=== PATIENT | male | born 1960 | race Caucasian/White ===

== ENCOUNTER 2020-09-06 16:35 | Inpatient (IN) | payer OTHER ==
[~2020-09-06 16:35] MED LIST: Iopamidol-370 76% 500 ML 1 ML ONE
[2020-09-06] MEDS ORDERED: Fentanyl 100 MCG/2 ML VIAL ONE ×2 (16:48→19:01)
[2020-09-06 17:01] LABS: #Basophils 0.1 thou/uL (0.0-0.2); #Eosinphils 0.1 thou/uL (0.0-0.7); #Lymphocytes 1.4 thou/uL (1.20-3.40); #Monocytes 0.6 thou/uL (0.11-0.59); #Neutrophils 9.7 thou/uL (1.40-6.50); %Basophils 0.5 % (0.0-1.0); %Eosinophils 0.6 % (0.0-10.0); %Lymphocytes 11.9 % (21.0-51.0); %Monocytes 5.3 % (0.0-10.0); %Neutrophils 81.8 % (42.0-75.0); Hemoglobin 12.9 g/dL (14.0-18.0); Mean Corpuscular HGB CONC 34.2 g/dL (32.0-36.0); Mean Corpuscular Hemoglobin 31.2 pg (27.0-31.0); Mean Corpuscular Volume 91.1 fL (78.0-98.0); Mean Platelet Volume 7.8 fL (7.4-10.4); Platelet Count 189 thou/uL (130-400); RBC Distribution Width 11.3 % (11.5-14.5); Red Blood Cell (RBC) Count 4.15 mill/uL (4.70-6.10); White Blood Cell (WBC) Count 11.8 thou/uL (4.8-10.8)
[2020-09-06 17:25] LABS: ALT (SGPT) 34 U/L (8-55); AST (SGOT) 34 U/L (5-34); Albumin 3.7 g/dL (3.4-4.8); Alkaline Phosphatase 80 U/L (40-110); Anion Gap 10 mmol/L (10-20); BUN (Urea Nitrogen) 18 mg/dL (8.4-25.7); Bilirubin, Total 0.4 mg/dL (0.2-1.2); Calc. Creatinine Clearance 0 mL/min (70-130); Calcium 8.6 mg/dL (7.8-10.44); Carbon Dioxide 23 mmol/L (23-31); Chloride 112 mmol/L (98-107); Globulin 2.4 g/dL (2.4-3.5); Glucose 134 mg/dL (80-115); Potassium 4.2 mmol/L (3.5-5.1); Protein, Total 6.1 g/dL (5.8-8.1); Sodium 141 mmol/L (136-145)
[2020-09-06 17:54] LABS: INR-International Normal Ratio 1.1; PTT 26.2 sec (22.9-36.1); Prothrombin Time 14.7 sec (12.0-14.7)
[2020-09-06] MEDS ORDERED: Ondansetron ODT 4 MG TAB PO PRN (18:56)
[2020-09-06] MEDS ORDERED: Dextrose 5% in Water 1,000 ML IV PRN (18:56)
[2020-09-06] MEDS ORDERED: Dextrose 50% Abboject 50 ML SYRINGE SLOW IVP PRN (18:56)
[2020-09-06] MEDS ORDERED: hydrALAZINE 20 MG/ML VIAL SLOW IVP PRN (18:56)
[2020-09-06] MEDS ORDERED: Morphine 4 MG/ML VIAL SLOW IVP PRN (18:56)
[2020-09-06] MEDS ORDERED: Promethazine HCl 25 MG/ML VIAL IM PRN (18:56)
[2020-09-06] MEDS ORDERED: Ondansetron PF 4 MG/2 ML Vial IVP PRN (18:56)
[2020-09-06] MEDS ORDERED: Sodium Chloride 0.9% 1,000 ML IV SCH (19:00)
[2020-09-06] MEDS ORDERED: CEFAZOLIN 2 GM in Premix Bag 1 BAG IVPB SCH (19:00)
[2020-09-06] MEDS ORDERED: traMADol HCl 50 MG TAB PO PRN (19:02)
[2020-09-06] MEDS ORDERED: Cyclobenzaprine 10 MG TAB PO PRN (19:02)
[2020-09-06 19:04] LABS: SARS-CoV-2 NAA Rapid Test Not Detected (NotDetected)
[2020-09-06 19:17] LABS: Bilirubin Negative (Negative); Blood, Urine Negative (Negative); Clarity Clear (Clear); Glucose, Urine (Dipstick) Normal (Negative); Ketone, Urine Negative (Negative); Leukocyte Negative Leu/uL (Negative); Nitrite Negative (Negative); Protein, Urine (Dipstick) Negative (Neg-Trace); Specific Gravity, Urine 1.018 (1.002-1.036); Urobilinogen Normal mg/dL (Less than 2)
[2020-09-06] MEDS: Lactated Ringer's 1,000 ML IV SCH (21:25)
[2020-09-06] MEDS: Famotidine 20 MG TAB PO SCH (21:25)
[2020-09-06] MEDS: Senokot S 8.6-50 MG TAB PO SCH (21:25)
[2020-09-06 22:54] VITALS: BMI 29.1
[2020-09-07] MEDS: Acetaminophen 500 MG TAB PO SCH ×4 (00:32→17:07)
[2020-09-07] MEDS: traMADol HCl 50 MG TAB PO SCH ×4 (00:33→17:07)
[2020-09-07] MEDS: Ketorolac Tromethamine 30 MG/ML VIAL IVP SCH ×4 (00:33→17:08)
[2020-09-07 03:27] LABS: SARS-CoV-2 NAA Rapid Test Not Detected (NotDetected)
[2020-09-07 05:22] LABS: #Eosinphils 0.1 thou/uL (0.0-0.7); #Lymphocytes 1.2 thou/uL (1.20-3.40); #Monocytes 0.7 thou/uL (0.11-0.59); #Neutrophils 4.6 thou/uL (1.40-6.50); %Basophils 0.5 % (0.0-1.0); %Eosinophils 0.9 % (0.0-10.0); %Lymphocytes 18.3 % (21.0-51.0); %Monocytes 10.4 % (0.0-10.0); %Neutrophils 69.9 % (42.0-75.0); Hemoglobin 11.6 g/dL (14.0-18.0); Mean Corpuscular Volume 90.9 fL (78.0-98.0); Platelet Count 169 thou/uL (130-400); RBC Distribution Width 11.3 % (11.5-14.5); Red Blood Cell (RBC) Count 3.86 mill/uL (4.70-6.10); White Blood Cell (WBC) Count 6.5 thou/uL (4.8-10.8)
[2020-09-07 05:40] LABS: Phosphorus 3.2 mg/dL (2.3-4.7)
[2020-09-07 05:41] LABS: Anion Gap 11 mmol/L (10-20); BUN (Urea Nitrogen) 15 mg/dL (8.4-25.7); Calc. Creatinine Clearance 126 mL/min (70-130); Calcium 8.1 mg/dL (7.8-10.44); Carbon Dioxide 24 mmol/L (23-31); Chloride 109 mmol/L (98-107); Glucose 107 mg/dL (80-115); Magnesium 1.9 mg/dL (1.6-2.6); Potassium 3.9 mmol/L (3.5-5.1); Sodium 140 mmol/L (136-145)
[2020-09-07] MEDS: Lactated Ringer's 1,000 ML IV SCH ×3 (05:51→20:37)
[2020-09-07] MEDS: Losartan 25 MG TAB PO SCH (08:08)
[2020-09-07] MEDS: Famotidine 20 MG TAB PO SCH ×2 (08:08→20:36)
[2020-09-07] MEDS: Polyethylene Glycol 3350 17 GM Packet PO SCH (08:10)
[2020-09-07] MEDS: Senokot S 8.6-50 MG TAB PO SCH ×2 (08:10→20:36)
[2020-09-07] MEDS ORDERED: Midazolam HCl 2 mg/2 ml Vial ONE (10:30)
[2020-09-07] MEDS ORDERED: Fentanyl 100 MCG/2 ML VIAL ONE ×3 (10:31→14:36)
[2020-09-07] MEDS ORDERED: ePHEDrine Sulfate 50 MG/10 ML VIAL ONE (12:12)
[2020-09-07] MEDS ORDERED: Ketorolac Tromethamine 30 MG/ML VIAL ONE (12:12)
[2020-09-07] MEDS ORDERED: Dexamethasone 20 MG/5 ML VIAL ONE (12:12)
[2020-09-07] MEDS ORDERED: Ondansetron PF 4 MG/2 ML Vial ONE (12:12)
[2020-09-07] MEDS ORDERED: Ondansetron HCl/PF 4 MG/2 ML Vial IVP PRN (14:32)
[2020-09-07] MEDS ORDERED: Promethazine HCl 25 MG/ML VIAL SLOW IVP PRN (14:32)
[2020-09-07] MEDS ORDERED: Promethazine HCl 25 MG/ML VIAL IM PRN (14:32)
[2020-09-07] MEDS ORDERED: Morphine Sulfate 2 MG/ML SYRINGE SLOW IVP PRN (14:32)
[2020-09-07] MEDS: CEFAZOLIN 2 GM in Premix Bag 1 BAG IVPB SCH (17:05)
[2020-09-08] MEDS: CEFAZOLIN 2 GM in Premix Bag 1 BAG IVPB SCH ×2 (00:37→09:19)
[2020-09-08] MEDS: traMADol HCl 50 MG TAB PO SCH ×5 (00:38→23:54)
[2020-09-08] MEDS: Acetaminophen 500 MG TAB PO SCH ×5 (00:38→23:54)
[2020-09-08] MEDS: Ketorolac Tromethamine 30 MG/ML VIAL IVP SCH (00:39)
[2020-09-08 05:53] LABS: Mean Corpuscular HGB CONC 34.3 g/dL (32.0-36.0); Mean Corpuscular Hemoglobin 31.4 pg (27.0-31.0); Mean Corpuscular Volume 91.5 fL (78.0-98.0); Mean Platelet Volume 8.3 fL (7.4-10.4); Platelet Count 159 thou/uL (130-400); RBC Distribution Width 11.1 % (11.5-14.5); Red Blood Cell (RBC) Count 3.49 mill/uL (4.70-6.10); White Blood Cell (WBC) Count 9.8 thou/uL (4.8-10.8)
[2020-09-08] MEDS: Lactated Ringer's 1,000 ML IV SCH (06:03)
[2020-09-08] MEDS: Senokot S 8.6-50 MG TAB PO SCH ×2 (09:18→20:36)
[2020-09-08] MEDS: Polyethylene Glycol 3350 17 GM Packet PO SCH (09:19)
[2020-09-08] MEDS: Losartan 25 MG TAB PO SCH (09:19)
[2020-09-08] MEDS: Enoxaparin Sodium 40 MG/0.4 ML SYRINGE SC SCH (09:19)
[2020-09-08] MEDS: Famotidine 20 MG TAB PO SCH ×2 (09:19→20:35)
[2020-09-09] MEDS: Acetaminophen 500 MG TAB PO SCH ×2 (06:04→13:14)
[2020-09-09] MEDS: traMADol HCl 50 MG TAB PO SCH ×2 (06:05→13:14)
[2020-09-09] MEDS ORDERED: Aspirin 81 mg Enteric Coated Tablet PO SCH (09:00)
[2020-09-09] MEDS: Losartan 25 MG TAB PO SCH (10:11)
[2020-09-09] MEDS: Senokot S 8.6-50 MG TAB PO SCH (10:12)
[2020-09-09] MEDS: Famotidine 20 MG TAB PO SCH (10:12)
[2020-09-09] MEDS: Polyethylene Glycol 3350 17 GM Packet PO SCH (10:13)
[2020-09-09] MEDS: Enoxaparin Sodium 40 MG/0.4 ML SYRINGE SC SCH (10:13)
[2020-09-09] MEDS ORDERED: Acetaminophen 500 MG TAB ONE (13:13)
[2020-09-09] MEDS ORDERED: traMADol HCl 50 MG TAB ONE (13:14)
[2020-09-09 15:55] VITALS: BP 131/78; TEMP 98.7
== END 2020-09-09 16:05 | disposition home health service (06) | DRG 493 ==
LOC: ERS 16:35 → SJJU 18:45
PROVIDERS: ADMIT Surgery; ATTEND Surgery
PROC: 0QSH04Z Reposition Left Tibia with Internal Fixation Device, Open Approach (ICD-10-PCS; principal; 2020-09-07)
DX: S82.142A Displaced bicondylar fracture of left tibia, initial encounter for closed fracture (principal); S06.0X9A Concussion with loss of consciousness of unspecified duration, initial encounter; I10 Essential (primary) hypertension; E78.00 Pure hypercholesterolemia, unspecified; Z20.822 Contact with and (suspected) exposure to COVID-19; V29.9XXA Motorcycle rider (driver) (passenger) injured in unspecified traffic accident, initial encounter; Z87.891 Personal history of nicotine dependence; Z91.012 Allergy to eggs; Z79.899 Other long term (current) drug therapy
CPT/HCPCS: 0240U; 29505; 36415; 36416; 70450; 71260; 72125; 74177; 76000; 80048; 80053; 81003; 83735; 84100; 85025; 85027; 85610; 85730; 86850; 86900; 86901; 87635; 93005; 96374; 96376; C1713; J0690; J1100; J1650; J1885; J2250; J2405; J3010; Q9967; U0002; U0003; U0005